=== PATIENT | female | born 1980 | race Caucasian/White ===

== ENCOUNTER 2023-01-22 08:12 | Observation (INO) ==
[2023-01-22] MEDS ORDERED: NS 100 ML IV 100 ML ONE (08:40)
[2023-01-22] MEDS ORDERED: ANCEF VIAL 1 GRAM ONE (08:40)
[2023-01-22] MEDS ORDERED: LR 1,000 ML IV 1,000 ML IV ONE ×2 (08:42→10:22)
[2023-01-22 09:02] VITALS: BMI 34.4
[2023-01-22] MEDS ORDERED: DIPRIVAN VIAL 20 ML ONE (10:21)
[2023-01-22] MEDS ORDERED: ROBINUL ONE ×2 (10:21→12:18)
[2023-01-22] MEDS ORDERED: PEPCID 20 MG VIAL ONE (10:21)
[2023-01-22] MEDS ORDERED: ZOFRAN INJ 4 MG VIAL ONE (10:21)
[2023-01-22] MEDS ORDERED: DECADRON INJ ONE (10:21)
[2023-01-22] MEDS ORDERED: LACRI-LUBE S.O.P. ONE (10:21)
[2023-01-22] MEDS ORDERED: ZEMURON 100 MG VIAL ONE (10:21)
[2023-01-22] MEDS ORDERED: BRIDION ONE (10:21)
[2023-01-22] MEDS ORDERED: FENTANYL VIAL INJ 100 mcg ONE (10:22)
[2023-01-22] MEDS ORDERED: KETAMINE 50 MG/5 ML-NACL SYRNG ONE (10:22)
[2023-01-22] MEDS ORDERED: XYLOCAINE 2 % (PLAIN) ONE (10:34)
[2023-01-22] MEDS ORDERED: ULTANE GAS IN ONE (10:34)
[2023-01-22] MEDS ORDERED: NEO-SYNEPHRINE INJ ONE (10:36)
[2023-01-22] MEDS ORDERED: BARHEMSYS INJ IVP PRN (12:54)
[2023-01-22] MEDS ORDERED: DILAUDID INJ IVP PRN (12:54)
[2023-01-22] MEDS ORDERED: BENADRYL INJ 50 MG VIAL IVP PRN (12:54)
[2023-01-22] MEDS ORDERED: TYLENOL 325 MG TAB PO PRN (13:38)
[2023-01-22] MEDS ORDERED: ZOFRAN INJ 4 MG VIAL IVP PRN (13:38)
[2023-01-22] MEDS: ANCEF VIAL 1 GRAM IVP SCH ×2 (15:40→21:07)
[2023-01-22] MEDS: ROXICODONE TAB 5 MG PO PRN (20:41)
[2023-01-22] MEDS ORDERED: COLACE CAP 100 MG PO SCH (21:00)
[2023-01-22] MEDS: DILAUDID INJ IVP PRN (23:40)
[2023-01-23] MEDS: ROXICODONE TAB 5 MG PO PRN ×3 (01:53→14:26)
[2023-01-23] MEDS: ANCEF VIAL 1 GRAM IVP SCH (05:16)
--- NOTE | 2023-01-23 06:19 | NOTE.SOAP ---
Soap Note Note for Day of Date of Exam: 01/23/23 Subjective Data Subjective Data: POD1 s/p Left STJ arthrodesis with application of external fixator. Patient is doing well, she still has the saab in but due to her history we are keeping it in through her stay in the hospital. She did not complain of any pain this am. She denies any nausea, vomiting, fever, chills, dizziness or SOB Objective Data Objective Data: Pin sites are c/d/i, no sigh of infection including erythema and purulence Dressings over the incision site are c/d/i Assessment Assessment: s/p Left STJ arthrodesis with application of external fixator - Pseudoarthrosis, left foot Plan Plan: Patient was seen bedside this am, applied the post op shoe to fit the frame. Dressings c/d/i. DVT ppx started this am. Ancef 4 bags given. Oxycodone and Dilaudid for pain- patient can be transitioned to just PO medication. PT gate train: WBAT to the LLE at 50% with assistive device. Patient okay for discharge today. Please dispense rx and post op instructions in chart. Patient scheduled to follow up with Dr. Aranda in office.
[2023-01-23 06:48] LABS: BLOOD UREA NITROGEN 9 mg/dL (7-18); CALCIUM 8.1 mg/dL (8.5-10.1); CARBON DIOXIDE 25.6 mmol/L (21-32); CHLORIDE 106 mmol/L (98-107); COR NA(FOR HYPERGLY) 141 mmol/L (136-145); CREATININE 0.73 mg/dL (0.55-1.02); GLUCOSE 125 mg/dL (65-99); POTASSIUM 3.7 mmol/L (3.5-5.1); SODIUM 140 mmol/L (136-145); eGFR NON BLACK RACES > 60 (>60)
[2023-01-23] MEDS: DILAUDID INJ IVP PRN (07:41)
[2023-01-23] MEDS ORDERED: LOVENOX INJ 40 MG SYR SC SCH (09:00)
[2023-01-23] MEDS ORDERED: NS 100 ML IV 100 ML with VENOFER 400 MG IV NR ×2 (09:35)
[2023-01-23] MEDS ORDERED: NS 100 ML IV 0 ML ONE (10:08)
[2023-01-23 14:11] VITALS: BP 130/70; PULSE 68; TEMP 98.3; O2SAT 97
[2023-01-23 17:25] VITALS: RESP 20
== END 2023-01-23 18:15 | disposition home health service (06) ==
LOC: MED/SURG
PROVIDERS: ADMIT Obstetrics & Gynecology Obstetrics; ATTEND Obstetrics & Gynecology Obstetrics
PROC: APEXFIX (2023-01-22 11:00)
DX: M96.0 Pseudarthrosis after fusion or arthrodesis; R26.89 Other abnormalities of gait and mobility; M19.072 Primary osteoarthritis, left ankle and foot

== ENCOUNTER 2023-11-19 09:00 | Observation (INO) ==
[2023-11-19] MEDS: NOZIN NASAL SANITIZER TP ONE (10:08)
[2023-11-19] MEDS: LR 1,000 ML IV 1,000 ML IV ONE (10:09)
[2023-11-19 10:45] VITALS: BMI 32.0
[2023-11-19] MEDS: DUONEB 0.5 MG/3 MG (3 mL) NEB ONE ×2 (10:59→19:00)
[2023-11-19] MEDS: NARCAN INJ ONE (11:07)
[2023-11-19] MEDS: DILAUDID INJ ONE (11:33)
[2023-11-19] MEDS: DIPRIVAN VIAL 20 ML ONE (11:33)
[2023-11-19] MEDS: FENTANYL VIAL INJ 100 mcg ONE ×2 (11:33)
[2023-11-19] MEDS: VERSED ONE (11:33)
[2023-11-19] MEDS: ZEMURON 100 MG VIAL ONE (11:33)
[2023-11-19] MEDS: OFIRMEV IV 1000 MG VIAL 1,000 MG/100 ML VIAL IV ONE (11:33)
[2023-11-19] MEDS: TORADOL 30 MG VIAL ONE (11:33)
[2023-11-19] MEDS ORDERED: SUPRANE ONE (11:33)
[2023-11-19] MEDS: ANCEF VIAL 1 GRAM ONE (11:33)
[2023-11-19] MEDS: REGLAN INJ 10 MG VIAL ONE (11:33)
[2023-11-19] MEDS: NS 100 ML IV 100 ML ONE (11:33)
[2023-11-19] MEDS: PEPCID 20 MG VIAL ONE (11:33)
[2023-11-19] MEDS: ZOFRAN INJ 4 MG VIAL ONE (11:33)
[2023-11-19] MEDS: SUPRANE ONE (11:53)
[2023-11-19] MEDS: MARCAINE 0.25% INJ ONE (12:02)
[2023-11-19] MEDS: BRIDION ONE (12:16)
[2023-11-19] MEDS ORDERED: TYLENOL 325 MG TAB PO PRN (13:33)
[2023-11-19] MEDS ORDERED: DILAUDID INJ IVP PRN (13:33)
[2023-11-19] MEDS ORDERED: ZOFRAN INJ 4 MG VIAL IVP PRN ×2 (13:33→13:43)
[2023-11-19] MEDS ORDERED: BENADRYL INJ 50 MG VIAL IVP PRN (13:43)
[2023-11-19] MEDS ORDERED: REGLAN INJ 10 MG VIAL IVP PRN (13:43)
[2023-11-19] MEDS ORDERED: BARHEMSYS INJ IVP PRN (13:43)
[2023-11-19] MEDS: DILAUDID INJ IVP PRN (13:45)
[2023-11-19] MEDS: DUONEB 0.5 MG/3 MG (3 mL) NEB SCH (16:51)
[2023-11-19] MEDS: NS 1,000 ML IV 1,000 ML IV SCH (17:34)
[2023-11-19] MEDS: COLACE CAP 100 MG PO SCH (20:21)
[2023-11-19] MEDS: NOZIN NASAL SANITIZER TP SCH (20:23)
[2023-11-19] MEDS: PULMICORT NEB TX 0.5 MG NEB SCH (21:34)
[2023-11-20] MEDS: PERCOCET TAB 5/325 MG PO PRN (00:16)
[2023-11-20 04:55] LABS: BASOPHILS # (AUTO) 0.1 X10^3/uL (0.0-0.1); BASOPHILS % (AUTO) 0.8 % (0.2-1.0); EOSINOPHILS # (AUTO) 0.2 x10^3/uL (0.0-0.2); EOSINOPHILS % (AUTO) 3.3 % (0.9-2.9); HEMOGLOBIN 8.9 g/dL (12.0-16.0); LYMPHOCYTES # (AUTO) 1.9 X10^3/uL (1.3-2.9); LYMPHOCYTES % (AUTO) 25.2 % (21.0-51.0); MEAN CORPUSCULAR HEMOGLOBIN 26.5 pg (27.0-34.0); MEAN CORPUSCULAR VOLUME 80.5 fL (80.0-100.0); MEAN PLATELET VOLUME 8.9 fL (7.4-11.0); MONOCYTES # (AUTO) 0.5 x10^3/uL (0.3-0.8); MONOCYTES % (AUTO) 7.3 % (0.0-13.0); NEUTROPHILS # (AUTO) 4.7 x10^3/uL (2.2-4.8); NEUTROPHILS % (AUTO) 63.4 % (42.0-75.0); PLATELET COUNT 193 X10^3/uL (150.0-450.0); RED BLOOD COUNT 3.35 X10^6/uL (3.5-5.4); WHITE BLOOD COUNT 7.5 X10^3/uL (3.6-10.0)
[2023-11-20 05:19] LABS: BLOOD UREA NITROGEN 9 mg/dL (7-18); CALCIUM 7.7 mg/dL (8.5-10.1); CARBON DIOXIDE 28.4 mmol/L (21-32); CHLORIDE 108 mmol/L (98-107); CREATININE 0.76 mg/dL (0.55-1.02); GLUCOSE 109 mg/dL (65-99); POTASSIUM 3.4 mmol/L (3.5-5.1); SODIUM 142 mmol/L (136-145); eGFR NON BLACK RACES > 60 (>60)
[2023-11-20] MEDS: LOVENOX INJ 40 MG SYR SC SCH (08:59)
[2023-11-20] MEDS ORDERED: VOLTAREN 1 % GEL MULTI DOSE TUBE TOP PRN (09:24)
[2023-11-20] MEDS ORDERED: PATIENT'S HOME MEDICATION (Ipratropium-Albuterol [Combivent Respimat] 20-100 mcg/actuation IN SCH (09:30)
--- NOTE | 2023-11-20 09:33 | NOTE.SOAP ---
Soap Note Note for Day of Date of Exam: 11/20/23 Subjective Data Subjective Data: Patient resting comfortably. States the outside of the operative leg hurts a little. Objective Data Objective Data: Left Lower Extremity Exam: CFT WNL to all digits. Able to flex and extend digits. Dressing has minor strikethrough noted. No calf or thigh pain. No knee effusion noted. No hematoma formation noted at the tibial harvest site. No signs or symptoms concerning for DVT, PE, or Comaprtment Syndrome. Assessment Assessment: 43 year old Female s/p POD#1 revision STJ with proximal tibial bone graft, left Plan Plan: - NWB to the LLE. - PRN Pain Regimen on board. - Patient is awaiting on rehab placement, scripts are in chart. - Following pathology report, awaiting results. - Plans to change dressing tomorrow.
[2023-11-20] MEDS ORDERED: DESYREL PO PRN (09:35)
[2023-11-20] MEDS: BUSPAR PO SCH (10:41)
[2023-11-20] MEDS: NEURONTIN CAP 400 MG PO SCH (10:41)
[2023-11-20] MEDS: TOPAMAX PO SCH (10:42)
[2023-11-20] MEDS: NS 100 ML IV 100 ML with VENOFER 400 MG IV NR (10:46)
[2023-11-20] MEDS ORDERED: DUONEB 0.5 MG/3 MG (3 mL) NEB SCH (13:00)
[2023-11-20] MEDS: MAG-OX TAB PO SCH (14:32)
[2023-11-20] MEDS: K-DUR TAB 20 MEQ PO SCH ×2 (14:32→20:04)
[2023-11-20] MEDS: ZyPREXA TAB 5 MG PO SCH (20:03)
[2023-11-21 05:26] LABS: BASOPHILS # (AUTO) 0.1 X10^3/uL (0.0-0.1); BASOPHILS % (AUTO) 0.9 % (0.2-1.0); EOSINOPHILS # (AUTO) 0.4 x10^3/uL (0.0-0.2); EOSINOPHILS % (AUTO) 7.3 % (0.9-2.9); HEMATOCRIT 27.1 % (36.0-47.0); HEMOGLOBIN 8.8 g/dL (12.0-16.0); LYMPHOCYTES # (AUTO) 1.4 X10^3/uL (1.3-2.9); LYMPHOCYTES % (AUTO) 24.9 % (21.0-51.0); MEAN CORPUSCULAR HEMOGLOBIN 26.4 pg (27.0-34.0); MEAN CORPUSCULAR HGB CONC 32.6 g/dL (33.0-35.0); MEAN PLATELET VOLUME 9.2 fL (7.4-11.0); MONOCYTES # (AUTO) 0.4 x10^3/uL (0.3-0.8); MONOCYTES % (AUTO) 7.5 % (0.0-13.0); NEUTROPHILS # (AUTO) 3.4 x10^3/uL (2.2-4.8); NEUTROPHILS % (AUTO) 59.4 % (42.0-75.0); PLATELET COUNT 211 X10^3/uL (150.0-450.0); RED BLOOD COUNT 3.35 X10^6/uL (3.5-5.4); RED CELL DISTRIBUTION WIDTH 16.3 % (11.6-16.5); WHITE BLOOD COUNT 5.7 X10^3/uL (3.6-10.0)
[2023-11-21 05:43] LABS: ALANINE AMINOTRANSFERASE 11 Units/L (12-78); ALBUMIN 2.4 g/dL (3.4-5.0); ALKALINE PHOSPHATASE 68 Units/L (46-116); ASPARTATE AMINO TRANSFERASE 11 Units/L (15-37); BLOOD UREA NITROGEN 6 mg/dL (7-18); CARBON DIOXIDE 25.8 mmol/L (21-32); CHLORIDE 109 mmol/L (98-107); COR CA(FOR HYPOALB) 9.3 mg/dL (8.5-10.1); CREATININE 0.68 mg/dL (0.55-1.02); GLUCOSE 93 mg/dL (65-99); MAGNESIUM 1.9 mg/dL (2.0-2.9); SODIUM 143 mmol/L (136-145); TOTAL PROTEIN 5.1 g/dL (6.4-8.2); eGFR NON BLACK RACES > 60 (>60)
[2023-11-21] MEDS: CONSULT PHARMACY - POTASSIUM & MAGNESIUM XX SCH (06:52)
--- NOTE | 2023-11-21 15:38 | NOTE.SOAP ---
Soap Note Note for Day of Date of Exam: 11/21/23 Subjective Data Subjective Data: Resting in bed. Objective Data Objective Data: Left Lower Extremity Exam: Surgical incision over proximal tibia site is healing as expected. No knee effusion noted. No hematoma formation noted. Surgical incisions over the lateral heel are also healing as expected. Sutures are in place with no gapping or dehiscence noted. No drainage from any incision sites. No calf pain or thigh pain. No signs or symptoms concerning for DVT, PE, or Compartment Syndrome. Assessment Assessment: 43 year old female who is POD#2 STJ Nonunion revision, left Plan Plan: - NWB to LLE. - Dressing changed today. - Leave dressing in place. - Awaiting placement. - She understands to not get the dressing wet and if she does to call the office. - Will continue to monitor while awaiting placement.
[2023-11-22 05:05] LABS: BASOPHILS # (AUTO) 0.1 X10^3/uL (0.0-0.1); BASOPHILS % (AUTO) 0.9 % (0.2-1.0); EOSINOPHILS # (AUTO) 0.5 x10^3/uL (0.0-0.2); EOSINOPHILS % (AUTO) 8.7 % (0.9-2.9); HEMATOCRIT 27.4 % (36.0-47.0); HEMOGLOBIN 8.9 g/dL (12.0-16.0); LYMPHOCYTES % (AUTO) 33.7 % (21.0-51.0); MEAN CORPUSCULAR HEMOGLOBIN 26.4 pg (27.0-34.0); MEAN CORPUSCULAR HGB CONC 32.7 g/dL (33.0-35.0); MEAN CORPUSCULAR VOLUME 80.8 fL (80.0-100.0); MEAN PLATELET VOLUME 9.1 fL (7.4-11.0); MONOCYTES # (AUTO) 0.5 x10^3/uL (0.3-0.8); MONOCYTES % (AUTO) 8.9 % (0.0-13.0); NEUTROPHILS # (AUTO) 2.8 x10^3/uL (2.2-4.8); NEUTROPHILS % (AUTO) 47.8 % (42.0-75.0); PLATELET COUNT 211 X10^3/uL (150.0-450.0); RED BLOOD COUNT 3.38 X10^6/uL (3.5-5.4); RED CELL DISTRIBUTION WIDTH 16.5 % (11.6-16.5); WHITE BLOOD COUNT 5.9 X10^3/uL (3.6-10.0)
[2023-11-22 05:21] LABS: ALANINE AMINOTRANSFERASE 14 Units/L (12-78); ALBUMIN 2.5 g/dL (3.4-5.0); ALKALINE PHOSPHATASE 70 Units/L (46-116); ASPARTATE AMINO TRANSFERASE 13 Units/L (15-37); BLOOD UREA NITROGEN 7 mg/dL (7-18); CALCIUM 8.1 mg/dL (8.5-10.1); CARBON DIOXIDE 26.7 mmol/L (21-32); CHLORIDE 108 mmol/L (98-107); COR CA(FOR HYPOALB) 9.3 mg/dL (8.5-10.1); CREATININE 0.68 mg/dL (0.55-1.02); GLUCOSE 95 mg/dL (65-99); MAGNESIUM 1.9 mg/dL (2.0-2.9); SODIUM 140 mmol/L (136-145); TOTAL PROTEIN 5.3 g/dL (6.4-8.2); eGFR NON BLACK RACES > 60 (>60)
[2023-11-22] MEDS: MAGNESIUM SULFATE 1 GRAM/100 mL PREMIX 1 G/100 ML BAG IV SCH (10:53)
[2023-11-22] MEDS: PROCRIT or EPOGEN VIAL 10,000 UNITS SC ONE (10:53)
[2023-11-23 05:28] LABS: BASOPHILS # (AUTO) 0.1 X10^3/uL (0.0-0.1); BASOPHILS % (AUTO) 0.8 % (0.2-1.0); EOSINOPHILS # (AUTO) 0.6 x10^3/uL (0.0-0.2); EOSINOPHILS % (AUTO) 9.2 % (0.9-2.9); HEMATOCRIT 28.7 % (36.0-47.0); HEMOGLOBIN 9.4 g/dL (12.0-16.0); LYMPHOCYTES # (AUTO) 2.2 X10^3/uL (1.3-2.9); LYMPHOCYTES % (AUTO) 33.3 % (21.0-51.0); MEAN CORPUSCULAR HEMOGLOBIN 26.6 pg (27.0-34.0); MEAN CORPUSCULAR HGB CONC 32.9 g/dL (33.0-35.0); MEAN CORPUSCULAR VOLUME 80.8 fL (80.0-100.0); MEAN PLATELET VOLUME 8.9 fL (7.4-11.0); MONOCYTES # (AUTO) 0.5 x10^3/uL (0.3-0.8); MONOCYTES % (AUTO) 7.5 % (0.0-13.0); NEUTROPHILS # (AUTO) 3.3 x10^3/uL (2.2-4.8); NEUTROPHILS % (AUTO) 49.2 % (42.0-75.0); PLATELET COUNT 258 X10^3/uL (150.0-450.0); RED BLOOD COUNT 3.54 X10^6/uL (3.5-5.4); RED CELL DISTRIBUTION WIDTH 16.6 % (11.6-16.5); WHITE BLOOD COUNT 6.7 X10^3/uL (3.6-10.0)
[2023-11-23 05:49] LABS: ALANINE AMINOTRANSFERASE < 6 Units/L (12-78); ALBUMIN 2.6 g/dL (3.4-5.0); ALKALINE PHOSPHATASE 72 Units/L (46-116); ASPARTATE AMINO TRANSFERASE 11 Units/L (15-37); BLOOD UREA NITROGEN 7 mg/dL (7-18); CALCIUM 8.3 mg/dL (8.5-10.1); CARBON DIOXIDE 24.6 mmol/L (21-32); CHLORIDE 108 mmol/L (98-107); COR CA(FOR HYPOALB) 9.4 mg/dL (8.5-10.1); GLUCOSE 95 mg/dL (65-99); SODIUM 142 mmol/L (136-145); TOTAL PROTEIN 5.7 g/dL (6.4-8.2); eGFR NON BLACK RACES > 60 (>60)
--- NOTE | 2023-11-23 14:21 | NOTE.SOAP ---
Soap Note Note for Day of Date of Exam: 11/23/23 Subjective Data Subjective Data: Patient seen with nurse for morning rounds. Overall doing well. Continues to have some diarrhea. Pending placement for subacute rehab for wound care due to NWB of LLE. Objective Data Objective Data: Well-developed, well-nourished female in no acute distress. Hearing type conversation. Head NCAT. Extract movements normal. No respiratory distress, respirations are clear, speech is clear and strong. Mood and affect appropriate. Left extremity wrapped in clean dry dressing. Assessment Assessment: 1. Left STJ nonunion. Continue per podiatry. Plan for placement.
[2023-11-24 04:54] LABS: BASOPHILS # (AUTO) 0.1 X10^3/uL (0.0-0.1); EOSINOPHILS # (AUTO) 0.6 x10^3/uL (0.0-0.2); EOSINOPHILS % (AUTO) 8.1 % (0.9-2.9); HEMATOCRIT 31.3 % (36.0-47.0); HEMOGLOBIN 10.2 g/dL (12.0-16.0); LYMPHOCYTES # (AUTO) 2.4 X10^3/uL (1.3-2.9); LYMPHOCYTES % (AUTO) 30.1 % (21.0-51.0); MEAN CORPUSCULAR HEMOGLOBIN 26.4 pg (27.0-34.0); MEAN CORPUSCULAR HGB CONC 32.7 g/dL (33.0-35.0); MEAN CORPUSCULAR VOLUME 80.6 fL (80.0-100.0); MEAN PLATELET VOLUME 8.8 fL (7.4-11.0); MONOCYTES # (AUTO) 0.7 x10^3/uL (0.3-0.8); MONOCYTES % (AUTO) 8.1 % (0.0-13.0); NEUTROPHILS # (AUTO) 4.2 x10^3/uL (2.2-4.8); NEUTROPHILS % (AUTO) 52.7 % (42.0-75.0); PLATELET COUNT 291 X10^3/uL (150.0-450.0); RED BLOOD COUNT 3.88 X10^6/uL (3.5-5.4); RED CELL DISTRIBUTION WIDTH 16.6 % (11.6-16.5)
[2023-11-24 05:08] LABS: ALANINE AMINOTRANSFERASE 13 Units/L (12-78); ALBUMIN 2.7 g/dL (3.4-5.0); ALKALINE PHOSPHATASE 75 Units/L (46-116); ASPARTATE AMINO TRANSFERASE 10 Units/L (15-37); BLOOD UREA NITROGEN 6 mg/dL (7-18); CALCIUM 8.4 mg/dL (8.5-10.1); CARBON DIOXIDE 24.9 mmol/L (21-32); CHLORIDE 108 mmol/L (98-107); COR CA(FOR HYPOALB) 9.4 mg/dL (8.5-10.1); CREATININE 0.64 mg/dL (0.55-1.02); GLUCOSE 89 mg/dL (65-99); POTASSIUM 3.9 mmol/L (3.5-5.1); SODIUM 141 mmol/L (136-145); eGFR NON BLACK RACES > 60 (>60)
[2023-11-24 11:38] VITALS: TEMP 98.7
[2023-11-24 12:24] VITALS: RESP 17
[2023-11-24 14:01] VITALS: BP 122/76; PULSE 77; O2SAT 93
== END 2023-11-24 13:25 ==
LOC: ICU
PROVIDERS: ADMIT Obstetrics & Gynecology Obstetrics; ATTEND Obstetrics & Gynecology Obstetrics
DX: Z59.86 Financial insecurity; R19.7 Diarrhea, unspecified; M96.0 Pseudarthrosis after fusion or arthrodesis; M54.59 Other low back pain; Z72.0 Tobacco use; Z74.1 Need for assistance with personal care; R26.89 Other abnormalities of gait and mobility; E83.42 Hypomagnesemia; Z65.8 Other specified problems related to psychosocial circumstances; R94.31 Abnormal electrocardiogram [ECG] [EKG]